=== PATIENT | male | born 1960 | race African-American/Black ===

== ENCOUNTER 2016-10-09 20:15 | Emergency (ER) | payer OTHER ==
[~2016-10-09] VITALS: Ht 172.7 cm; Wt 93.0 kg
[~2016-10-09 20:15] MED LIST: FISH OIL 1,001000 MG; MEGA MULTI FOR1 EAC1; PAPAYA ENZYME1 EAC1; VITAMIN E200 UNI4
[2016-10-09] MEDS ORDERED: PREDNISONE 20 M20 MG PO (21:25)
[2016-10-09] MEDS ORDERED: NORFLEX100 MG PO (21:25)
[2016-10-09 21:35] VITALS: BP 126/72
== END 2016-10-09 21:53 | disposition home or self-care (01) ==
LOC: ER 20:15
DX: M54.12 Radiculopathy, cervical region (principal)

== ENCOUNTER → 2016-10-16 | Outpatient (CLI) | payer OTHER ==
[~2016-10-16] MED LIST changes: +NORFLEX100 MG PO; +PREDNISONE 20 M20 MG PO
== END ==
LOC: MRI 14:31
DX: M48.02 Spinal stenosis, cervical region (principal); M25.512 Pain in left shoulder; M25.511 Pain in right shoulder

== ENCOUNTER 2021-01-25 02:13 | Emergency (ER) | payer BC, OTHER ==
[~2021-01-25] VITALS: Ht 175.3 cm; Wt 90.7 kg
[2021-01-25 02:25] VITALS: BP 159/70
[2021-01-25] MEDS ORDERED: TRAMADOL 50 MG50 MG PO (03:30)
[2021-01-25] MEDS ORDERED: IBUPROFEN 800800 MG PO (03:30)
== END 2021-01-25 04:00 | disposition home or self-care (01) ==
LOC: ER 02:13
DX: S22.32XA Fracture of one rib, left side, initial encounter for closed fracture (principal); R07.89 Other chest pain; R10.12 Left upper quadrant pain; E03.9 Hypothyroidism, unspecified; Z79.899 Other long term (current) drug therapy; X50.1XXA Overexertion from prolonged static or awkward postures, initial encounter; Y93.89 Activity, other specified; Y92.89 Other specified places as the place of occurrence of the external cause; Y99.8 Other external cause status